=== PATIENT | male | born 1940 | race Caucasian/White ===

== ENCOUNTER → 2017-08-28 | Outpatient (CLI) | payer MEDICARE, BC ==
[~2017-08-28] MED LIST: AVODART0.5 MG PO; CIPROFLOXACIN500 M1 PO; COLACE100 MG PO; CORTISPORIN CR7.5 G1; FLOMAX PO; FLOMAX0.4 MG PO; LORTAB 5 MG/5001 TA1; MILK OF MAG PO; MIRALAX255 GM PO; OXYCODON-ACETA1 EAC1 PO; PROSCAR 5MG TABL5 M1 PO
== END ==
LOC: M.MRI 07:50
DX: S46.911A Strain of unspecified muscle, fascia and tendon at shoulder and upper arm level, right arm, initial encounter (principal); S43.401A Unspecified sprain of right shoulder joint, initial encounter; M19.011 Primary osteoarthritis, right shoulder; M25.411 Effusion, right shoulder; N40.0 Benign prostatic hyperplasia without lower urinary tract symptoms; X58.XXXA Exposure to other specified factors, initial encounter; Y93.89 Activity, other specified; Y92.89 Other specified places as the place of occurrence of the external cause; Y99.8 Other external cause status

== ENCOUNTER 2018-07-30 07:23 | Inpatient (IN) | payer MEDICARE, BC ==
[~2018-07-30] VITALS: Ht 170.2 cm; Wt 69.9 kg
[2018-07-30] MEDS ORDERED: MULTIVITAMINS1 EAC7 PO (07:33)
[2018-07-30 07:52] LABS: ABSOLUTE EOSINOPHILS 0.2 thou/uL (0.0-0.7); ABSOLUTE MONOCYTES 0.4 thou/uL (0.0-1.2); ABSOLUTE NEUTROPHILS 2.4 thou/uL (1.6-8.1); BASOPHILS 0.9 %; HEMATOCRIT 46.3 % (42.0-52.0); HEMOGLOBIN 16.1 gm/dL (14.0-18.0); LYMPHOCYTES 24.6 %; MCH 34.7 pg (26.0-34.0); MCHC 34.8 g/dL (28.0-37.0); MCV 99.6 fL (80.0-100.0); MPV 8.3 fl. (7.2-11.1); NUCLEATED RBCS 0 /100WBC; PLATELET COUNT* 184 thou/uL (150-400); POLYS 60.5 %; RBC 4.64 mil/uL (4.50-6.00); RDW-CV 12.8 % (10.5-14.5)
[2018-07-30 08:00] LABS: ANION GAP 5 mmol/L (7-16); BUN 24 mg/dL (7-18); CALCIUM 9.5 mg/dL (8.5-10.1); CHLORIDE 104 mmol/L (98-107); CO2 31 mmol/L (21-32); GLUCOSE 114 mg/dL (70-99); POTASSIUM 4.3 mmol/L (3.5-5.1); SODIUM 140 mmol/L (136-145)
[2018-07-30 08:06] LABS: APTT 22.3 Seconds (25.0-31.3); PROTIME 10.2 Seconds (9.20-11.50)
[2018-07-30 08:10] LABS: ALBUMIN 4.2 g/dL (3.4-5.0); ALKALINE PHOSPHATASE 70 U/L (46-116); NT-PRO BRAIN NAT PEPTIDE 197 pg/mL (<300); SGOT 29 U/L (15-37); SGPT 47 U/L (30-65); TOTAL BILIRUBIN 0.7 mg/dL (<0.1-1.0); TOTAL PROTEIN 6.6 g/dL (6.4-8.2); TROPONIN-I LEVEL <0.06 ng/mL (<0.06)
[2018-07-30 08:22] LABS: URINE BILIRUBIN NEGATIVE (Negative); URINE BLOOD NEGATIVE (Negative); URINE CLARITY CLEAR; URINE COLOR YELLOW; URINE GLUCOSE-RANDOM NEGATIVE (Negative); URINE KETONES NEGATIVE (Negative); URINE LEUKOCYTES-REFLEX NEGATIVE (Negative); URINE NITRITE-REFLEX NEGATIVE (Negative); URINE PROTEIN NEGATIVE (Negative); URINE UROBILINOGEN 0.2 E.U./dl (0.2-1.0)
[2018-07-30 12:48] VITALS: BP 105/52
[2018-07-30 13:00] VITALS: BP 126/59
--- NOTE | 2018-07-30 14:21 | EKG ---
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: Raquel CHANEL : 1940 Requested By: Raza Barrera Order Number: [id number] MD: Kristofer Jules Measurements Intervals [place] Rate: 49 P: -11 [place]: 180 QRS: 31 QRSD: 101 T: 38 QT: 467 QTc: 422 Interpretive Statements Sinus bradycardia Diffuse ST elevation Baseline wander in lead(s) V4 Compared to ECG 02/18/2015 11:34:38 Sinus rhythm no longer present Electronically Signed On 07-30-2018 14:21:23 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
[2018-07-30 16:25] VITALS: BP 126/58
--- NOTE | 2018-07-30 17:11 | 2DMMODE ---
[place] [address] 2 D/M-MODE ECHOCARDIOGRAM Name: SHAHRZAD STAHL Room: [address] IN .R.#: [id number] Admission: 07/30/18 Attend Phys: Raphael Blair, Discharge: Date of : 40 Date of Service: 07/30/18 1711 Report #: [id number] THIS REPORT FOR: //name// APPROVED REPORT Study performed: 07/30/2018 16:27:53 EXAM: Comprehensive 2D, Doppler, and color-flow Echocardiogram Patient Location: Bedside BSA: 1.81 HR: 51 bpm BP: 126/59 mmHg Other Information Study Quality: Good Indications Dizziness and Vertigo 2D Dimensions IVSd: 11.92 (7-11mm) LVOT Diam: 24.86 (18-24mm) LVDd: 41.15 mm PWd: 10.23 (7-11mm) Ascending Ao: 34.16 (22-36mm) LVDs: 28.79 (25-40mm) Aortic Root: 38.33 mm Volumes Left Atrial Volume (Systole) LA ESV Index: 34.70 mL/m2 Aortic Valve AoV Peak Luigi.: 1.04 m/s AO Peak Gr.: 4.30 mmHg LVOT Max P.50 mmHg AO Mean Gr.: 2.55 mmHg LVOT Mean P.58 mmHg LVOT Max V: 0.94 m/s AO V2 VTI: 23.66 cm LVOT Mean V: 0.57 m/s ARLETTE (VTI): 3.98 cm2 LVOT V1 VTI: 19.39 cm Mitral Valve E/A Ratio: 0.97 MV Decel. Time: 225.84 ms MV E Max Luigi.: 0.44 m/s MV PHT: 65.49 ms MVA (PHT): 3.36 [place] [address] 2 D/M-MODE ECHOCARDIOGRAM Name: FAVIOSHAHRZAD Valeria Room: [address] IN [facility].#: [id number] Admission: 07/30/18 Attend Phys: Raphael Blair, Discharge: Date of : 40 Date of Service: 07/30/18 1711 Report #: [id number] TDI E/Lateral E': 4.40 E/Medial E': 3.67 Medial E' Luigi.: 0.12 m/s Lateral E' Luigi.: 0.10 m/s Pulmonary Valve PV Peak Luigi.: 0.72 m/s PV Peak Gr.: 2.10 mmHg Tricuspid Valve RAP Estimate: 5.00 mmHg TR Peak Gr.: 22.03 mmHg RVSP: 27.03 mmHg PA Pressure: 27.03 mmHg Left Ventricle The left ventricle is normal size. There is normal LV segmental wall motion. Mild concentric left ventricular hypertrophy. Left ventricular systolic function is normal. LVEF is 60-65%. Transmitral Doppler flow pattern suggests impaired LV relaxation. Right Ventricle Right ventricle is dilated. The right ventricular systolic function is normal. Atria Left atrium is mildly dilated. Right atrium is mildly dilated. Aortic Valve The aortic valve is normal in structure. Trace aortic regurgitation. There is no aortic valvular stenosis. Mitral Valve The mitral valve is normal in structure. There is no mitral valve regurgitation noted. No evidence of mitral valve stenosis. Tricuspid Valve The tricuspid valve is normal in structure. Trace tricuspid regurgitation. No pulmonary hypertension. Pulmonic Valve The pulmonary valve is normal in structure. There is no pulmonic valvular regurgitation. Great Vessels The aortic root is normal in size. IVC [place] [address] 2 D/M-MODE ECHOCARDIOGRAM Name: SHAHRZAD STAHL Room: [address] IN [facility]#: [id number] Admission: 07/30/18 Attend Phys: Raphael Blair, Discharge: Date of : 40 Date of Service: 07/30/18 1711 Report #: [id number] collapses >50% with inspiration. Pericardium There is no pericardial effusion. <Conclusion> The left ventricle is normal size. Mild concentric left ventricular hypertrophy. Left ventricular systolic function is normal. LVEF is 60-65%. Transmitral Doppler flow pattern suggests impaired LV relaxation. Left atrium is mildly dilated. Right atrium is mildly dilated. Right ventricle is dilated. Trace aortic regurgitation. Trace tricuspid regurgitation. No pulmonary hypertension. IVC is normal in size and collapses >50% with inspiration. <ELECTRONICALLY SIGNED> By: Kristofer Jules MD, FACC 07/30/181710 10 10 Kristofer Jules MD, FACC /INF
[2018-07-30 20:00] VITALS: BP 129/60
[2018-07-30 21:09] LABS: GLYCOHEMOGLOBIN (HGB A1C) 5.1 % (4.8-5.6)
[2018-07-31] VITALS: BP 119/58
[2018-07-31 04:00] VITALS: BP 116/59
[2018-07-31 04:51] LABS: ABSOLUTE EOSINOPHILS 0.2 thou/uL (0.0-0.7); ABSOLUTE LYMPHOCYTES 1.4 thou/uL (0.8-5.3); ABSOLUTE MONOCYTES 0.6 thou/uL (0.0-1.2); ABSOLUTE NEUTROPHILS 3.1 thou/uL (1.6-8.1); BASOPHILS 0.7 %; EOSINOPHILS 3.4 %; HEMATOCRIT 40.5 % (42.0-52.0); HEMOGLOBIN 14.3 gm/dL (14.0-18.0); LYMPHOCYTES 26.7 %; MCHC 35.2 g/dL (28.0-37.0); MCV 99.2 fL (80.0-100.0); MPV 8.2 fl. (7.2-11.1); NUCLEATED RBCS 0 /100WBC; PLATELET COUNT* 164 thou/uL (150-400); POLYS 58.2 %; RBC 4.09 mil/uL (4.50-6.00); RDW-CV 12.5 % (10.5-14.5); WBC 5.3 thou/uL (4.0-11.0)
[2018-07-31 05:18] LABS: CALCIUM 8.5 mg/dL (8.5-10.1); CREATININE 0.9 mg/dL (0.6-1.3)
[2018-07-31 05:24] LABS: CHOLESTEROL 156 mg/dL (<200); HDL CHOLESTEROL 58 mg/dL (>40); LDL CHOLESTEROL 86 mg/dL (<100); TC:HDL 2.7 Ratio (Not establshd); TRIGLYCERIDE 63 mg/dL (<150); VLDL 13 mg/dL (<40)
[2018-07-31 05:25] LABS: SERUM ASSESSMENT CLEAR
--- NOTE | 2018-07-31 06:51 | NUR ---
PATIENT RESTED IN BED, NO ACUTE CHANGES. PATIENT DID NOT SHOW SIGNS OF DISTRESS. PATIENT DID NOT COMPLAIN OF DIZZINESS. MESSAGE SENT TO DOCTOR VESTA REGARDING PATIENT'S BRADYCARDIA. FALL PRECAUTIONS IN PLACE, CALL LIGHT WITH IN REACH, HOURLY ROUNDING OBSERVED, BED ALARM ON.
[2018-07-31 08:00] VITALS: BP 122/66; BP 191/106
[2018-07-31] MEDS ORDERED: ANTIVERT25 MG PO (10:59)
[2018-07-31 11:05] VITALS: BP 122/66
--- NOTE | 2018-07-31 11:36 | NUR ---
ORDER RECEIVED TO DISCHARGE PATIENT TO SELF CARE AT HOME. MED REC, MEDICATION EDUCATION, STROKE EDUCATION, AND NEED FOR FOLLOW UP APPOINTMENT WITH [facility] COVERED WITH EVANWT AND STATED UNDERSTOOD BY DEIDRE. VITAL SIGNS STABEL ANDPATINET IN NOAPPARENT SIGNS OF DISTRESS AT THIS TIME. IV AND TELEMTRY DISCONTINUED AND PATIENT CHOSE TO AMBULATE WITH NURSING STAFF TO AWAITING CAR WITH FAMILY PRESENT. HOURLY ROUNDING COMPLETD FOR PHUONGNET SAFETY. DISCHARGE TIME OF 11:30.
--- NOTE | 2018-08-01 10:17 | CON ---
[address] [address] CONSULTATION Name: FAVIOSHAHRZAD Valeria Room: [address] IN M.R.#: [id number] Admission: 07/30/18 Attend Phys: Raphael Blair MD Discharge: 07/31/18 Date of : 40 Report #: [id number] THIS REPORT FOR: //name// CC: Raphael Blair [facility] unknown HISTORY OF PRESENT ILLNESS: The patient is a 77-year-old male who yesterday experienced an intense spinning sensation. This began while he was having breakfast. His found him crawling on the floor. He was so dizzy. He could not walk. The patient states he has never had anything like this before. He does have a history of hearing loss. This morning, he feels perfectly fine. He has been up to the bathroom 3 times and has not had any recurrent symptoms. PAST MEDICAL HISTORY: Benign prostatic hypertrophy. PAST SURGICAL HISTORY: Reverse shoulder surgery. MEDICATIONS: Tamsulosin 0.4 mg daily. ALLERGIES: None. PHYSICAL EXAMINATION: VITAL SIGNS: Temperature 36.4, pulse rate 55, respiratory rate 16, blood pressure 112/66, bedside pulse oximetry 98% on room air. LABORATORY DATA: White blood cell count 5.3, hemoglobin 14.3, hematocrit 40.5, MCV 99.2, platelet count 164,000, INR 1. Urinalysis is normal with the exception of a pH of 8.5. Chemistry: Sodium 140, potassium 4, chloride 107, carbon dioxide 29, BUN 18, creatinine 0.9, GFR 82, glucose 95. Hemoglobin A1c 5.1. Lactic acid 0.9, calcium 8.5. All liver functions are normal. Creatinine kinase 150. ProBNP 197, triglycerides 63, cholesterol 156, LDL cholesterol 86, HDL cholesterol 58. IMAGING: MRI of the head and neck are unremarkable. NEUROLOGIC EXAMINATION: Cranial nerves 2-12 are grossly intact. Motor exam demonstrates symmetrical strength in all 4 extremities with tone and bulk normal. Reflexes are symmetrical throughout. Plantar responses are flexor. Coordination reveals intact [id number]. IMPRESSION: This patient has had an episode of vertigo. I explained to him that vertigo as an isolated symptom is usually not secondary to stroke and is secondary to vestibular dysfunction usually peripheral vestibular dysfunction. I explained that the MRI of the head is normal and shows no evidence of stroke. The patient is concerned this might return again. [place] [address] CONSULTATION Name: SHAHRZAD STAHL Room: [address] IN [facility]#: [id number] Admission: 07/30/18 Attend Phys: Raphael Blair MD Discharge: 07/31/18 Date of : 40 Report #: [id number] outpatient by [facility] in [place], [place]. He does not need any medication nor does he need change to any of his medications. I thank you for your kind referral of the patient. <ELECTRONICALLY SIGNED> By: Dunia Santa DO 08/01/18 1017 [id number] Santa DO /nt
== END 2018-07-31 11:42 | disposition home or self-care (01) | DRG 149 ==
LOC: M.ERS 07:23 → M.TBA-ER 09:05 → M.2W 09:05
PROVIDERS: Family Medicine; ADMIT Internal Medicine
DX: H81.10 Benign paroxysmal vertigo, unspecified ear (principal); N40.0 Benign prostatic hyperplasia without lower urinary tract symptoms; Z79.82 Long term (current) use of aspirin; Z79.899 Other long term (current) drug therapy

== ENCOUNTER → 2021-07-04 | Outpatient (CLI) | payer OTHER ==
[~2021-07-04] MED LIST changes: +ANTIVERT25 MG PO; +MULTIVITAMINS1 EAC7 PO
== END ==
LOC: M.CT 08:40
PROVIDERS: ATTEND Nurse Practitioner Family
DX: Z13.6 Encounter for screening for cardiovascular disorders (principal); I25.10 Atherosclerotic heart disease of native coronary artery without angina pectoris; I77.810 Thoracic aortic ectasia